=== PATIENT | male | born 1990 | race Caucasian/White ===

== ENCOUNTER 2017-01-06 21:24 | Inpatient (IN) | payer OTHER ==
[~2017-01-06] VITALS: Ht 167.6 cm; Wt 65.0 kg
[2017-01-06 22:00] VITALS: Ht 167.6 cm; Wt 65.0 kg
[2017-01-06 22:20] VITALS: BP 111/78; PULSE 94; RESP 16
[2017-01-06] MEDS ORDERED: BISACODYL (EC) 5 MG TAB PO PRN (23:00)
[2017-01-06] MEDS ORDERED: DOCUSATE SODIUM 100 MG CAP PO PRN (23:00)
[2017-01-06] MEDS ORDERED: ACETAMINOPHEN 325 MG TAB PO PRN (23:00)
[2017-01-06] MEDS ORDERED: ONDANSETRON 4 MG INJ IV PRN (23:00)
[2017-01-06] MEDS ORDERED: NACL 0.9% 3 ML SYG IV SCH (23:00)
[2017-01-06] MEDS: morphine 2 MG INJ IV PRN (23:29)
[2017-01-07 02:00] VITALS: BP 116/62; RESP 20
[2017-01-07] MEDS ORDERED: traZODone 100 MG TAB PO ONE (02:40)
[2017-01-07] MEDS ORDERED: OLANZAPINE 5 MG TAB PO SCH (02:40)
--- NOTE | 2017-01-07 06:17 | HP ---
Date/Time of Note Date/Time of Note DATE: 01/07/17 TIME: 05:55 Assessment/Plan VTE Prophylaxis VTE Prophylaxis Intervention: SCD's Lines/Catheters IV [facility]from [facility] Saline Lock Assessment/Plan Chief Complaint/Hosp Course This is a 26 oh male being admitted to the [facility] floor for: #1 right arm numbness: Possibly underlying demyelinating disease versus other neurological etiology. Motor and sensory deficits noted as well as abnormal focus seen on MRI of the cervical spine. At the current time will order MRI of the brain with and without contrast and MRI of the cervical spine with and without contrast. Will order UMU, ESR, CRP, CBC CMP hemoglobin A1c TSH and lipids. Will consult neurology for further recommendations. Will provide morphine for pain control at this time. #2 Schizophrenia: Continue Zyprexa, trazodone #3 lumbar disc disease: At the current time will hold patient's [place] as he is receiving morphine, continue gabapentin. #4 depression: Stable. #5 asthma: Stable #6 DVT and GI prophylaxis: SCDs, acid prateek Further treatment strategy will be implemented as per the clinical course Problems: HPI/ROS Admit Date/Time Admit Date/Time Jan 06, 2017 at 22:27 Hx of Present Illness Chief complaint: Severe right arm pain This is a 26-year-old male who was transferred from [facility] complaining of severe right arm pain. Patient originally presented to the [facility] complaining of severe right arm pain radiating from the shoulder all the way down to the lateral aspect of the arm to the dorsal hand. He describes it as burning and sharp and it is associated with numbness to the dorsal hand and forearm and down to the second and third finger. He also had weakness in the arm. According to the transfer documentation the patient stated that he initially had this pain for about 10 years however on my examination he states that it just started 3 days ago. Patient reports that he has had back pain for quite some time as he used to lift heavy objects. He goes to pain management and receives Percocet for the pain. Patient also reports that he has a history of migraine headaches. He denies any recent falls or trauma to the right arm or to the head. Patient also notes that he is lumbar spine he has some bulging disks but he has never had any surgeries. Allergies: NKDA Medications: See MAR ROS Const: As per HPI Eyes : No pain discharge or redness or change in visual acuity ENT: No pain, sore throat, congestion, congestion, dysphagia or discharge Respiratory: No shortness of breath, cough, sputum, wheezing, or pleuritic pain Cardiovascular: No chest pain, palpitation, PND, or edema GI : no change in appetite, abdominal pain, nausea, vomiting, diarrhea, constipation, or change in the color his stool Genitourinary: No dysuria, hematuria, flank pain , discharge or CVA tenderness Musculoskeletal: As per HPI Skin: No rash, bruising or hives Neuro: As per HPI Endocrine: No polyuria, polydipsia, temperature intolerance Psych: No hallucination, depression, anxiety or suicidal ideation PMH/Family/Social Past Medical History Depression, schizophrenia, lumbar disc disease, asthma Past Surgical History Past Surgical Hx: no surgical history Family History Significant Family History: other (MS: aunt) Social History Patient denies a history of drinking however on his transfer paperwork he did report that he drank alcohol. Smoking Status: Current every day smoker (1 pack per day 6 years) Drug Use: none Exam/Review of Systems Vital Signs Vitals Vital Signs Date Time Temp Pulse Resp B/P Pulse Ox O2 Delivery O2 Flow Rate FiO2 01/07/17 02:00 98.0 80 20 116/62 96 01/06/17 22:20 Room Air Exam Exam General: This is a pleasant 26-year-old male lying in bed in no acute distress. HEENT: Atraumatic, normocephalic. The pupils are equal, round and reactive. Extraocular motor are intact Neck: Tenderness to palpation at the area of C5-C6 normal range of motion of the neck, Chest: Nontender Lungs: Clear to auscultation bilaterally no crackles rales or wheezing Heart: Normal S1-S2, Regular rhythm and rate. No murmur, S3, or S4 Abdomen: Soft , nontender, nondistended , bowel sounds are present. No guarding no rebound tenderness , No masses or organomegaly. No costovertebral temporal angle mass Extremities: Normal to inspection, no edema no cyanosis Neurologic: Normal mental status, patient is alert and oriented 3. Patient's speech is normal. His cranial nerves II through XII are intact. Patient does have decreased searchlight operator of the bilateral upper extremities. Decreased ankle flexion of the left compared to the right. Intentional tremor with movement. Right upper extremity numbness on the dorsal aspect. Additional Comments MRI of the cervical spine: Done at the transferring facility showed: C3/C4 approximately 4 x 4 x 5 mm central cord rounded focus of abnormal signal is noted in the midportion of the cord posteriorly C4/C5: 1-2 mm retrolisthesis of C4 on C5 is suggested 1 mm broad-based disc bulge is noted: Abnormal central cord signal, approximately 5-6 mm AP 4 mm transverse and 5 mm in cephalo-caudad extension is noted no evidence of significant spinal stenosis or foraminal narrowing is noted. Above appearance could be due to demyelinating plaques of multiple sclerosis. Other additional lab studies were not available in the transfer documentation. Labs Result Diagram: 01/06/17 3862 Medications Medications Current Medications Ondansetron HCl (Zofran Inj) 4 mg Q6H PRN IV NAUSEA AND/OR VOMITING; Start at 23:00 Acetaminophen (Tylenol Tab) 650 mg Q6H PRN PO PAIN LEVEL 1-3 OR FEVER; Start at 23:00 Docusate Sodium (Colace) 100 mg Q12H PRN PO CONSTIPATION; Start 01/06/17 at 23: 00 Bisacodyl (Dulcolax) 5 mg DAILY PRN PO CONSTIPATION; Start 01/06/17 at 23:00 Famotidine (Pepcid) 20 mg Q12 PO ; Start 01/07/17 at 09:00 Morphine Sulfate (morphine) 2 mg Q4H PRN IV PAIN Last administered on t 23:29; Admin Dose 2 MG; Start 01/06/17 at 23:30 Trazodone HCl (Desyrel) 100 mg HS PO ; Start 01/07/17 at 21:00 Olanzapine (Zyprexa) 40 mg QHS PO ; Start 01/07/17 at 21:00 Gabapentin (Neurontin) 800 mg DAILY PO ; Start 01/07/17 at 09:00 Sulindac (Clinoril) 150 mg DAILY PO ; Start 01/07/17 at 09:00 Acetaminophen/ Hydrocodone Bitart ([place] (5/325)) 1 tab TID PO ; Start 01/07/17 at 09:00 PATRICE CAMPBELL Jan 07, 2017 06:07
[2017-01-07 06:21] LABS: BASOPHILS % 0.1 % (0.0-2.0); EOSINOPHILS % 0.1 % (0.0-7.0); HEMATOCRIT 45.7 % (42.0-52.0); HEMOGLOBIN 15.4 g/dl (14.0-18.0); LYMPHOCYTES # 1.2 10^3/ul (0.8-2.9); MEAN CORPUSCULAR HEMOGLOBIN 31.3 pg (29.0-33.0); MEAN CORPUSCULAR HGB CONC 33.7 g/dl (32.0-37.0); MEAN CORPUSCULAR VOLUME 92.9 fl (82.0-101.0); MEAN PLATELET VOLUME 10.5 fl (7.4-10.4); MONOCYTE # 0.6 10^3/ul (0.3-0.9); MONOCYTES % 5.6 % (0.0-11.0); NEUTROPHIL # 8.4 10^3/ul (1.6-7.5); NEUTROPHILS % 81.9 % (39.0-77.0); PLATELET COUNT 187 10^3/UL (140-415); RED BLOOD COUNT 4.92 10^6/ul (4.70-6.10); RED CELL DISTRIBUTION WIDTH 12.2 % (11.5-14.5); WHITE BLOOD COUNT 10.3 10^3/ul (4.8-10.8)
[2017-01-07] MEDS ORDERED: OLAN20TA3 PO (06:27)
[2017-01-07] MEDS ORDERED: [UNRECOGNIZED DRUG - CODE] PO (06:27)
[2017-01-07] MEDS ORDERED: HYDR-906 PO (06:27)
[2017-01-07] MEDS ORDERED: GABA-528 PO (06:27)
[2017-01-07] MEDS ORDERED: TRAZ100T15 PO (06:27)
[2017-01-07 06:35] LABS: INR 0.95; PROTIME 12.7 Sec (12.2-14.2)
[2017-01-07 06:36] LABS: PARTIAL THROMBOPLASTIN TIME 25.8 Sec (25.0-35.0)
[2017-01-07 06:56] LABS: ALBUMIN 3.9 g/dl (3.3-4.9); ALBUMIN/GLOBULIN RATIO 1.3; BILIRUBIN,INDIRECT 0.2 mg/dl (0-1.1); BILIRUBIN,TOTAL 0.2 mg/dl (0.2-1.3); CALCIUM 9.6 mg/dl (8.4-10.2); CHOL/HDL RATIO 4.2 RATIO; MAGNESIUM 1.6 mg/dl (1.7-2.5); POTASSIUM 4.4 mmol/L (3.5-5.1); TOTAL PROTEIN 6.9 g/dl (6.1-8.1)
[2017-01-07 07:19] LABS: THYROID STIMULATING HORMONE 0.42 MIU/L (0.465-4.680)
[2017-01-07 08:00] VITALS: BP 100/64; PULSE 96; RESP 20
[2017-01-07] MEDS: HYDROCODONE/APAP (5/325) TAB PO SCH ×3 (08:23→20:50)
[2017-01-07] MEDS: SULINDAC 150 MG TAB PO SCH (09:29)
[2017-01-07] MEDS: GABAPENTIN 400 MG CAP PO SCH (09:30)
[2017-01-07] MEDS: FAMOTIDINE 20 MG TAB PO SCH ×2 (09:30→20:49)
[2017-01-07] MEDS ORDERED: MAGNESIUM SULFATE 2 GM/50 ML 50 ML IVPB ONE (10:00)
[2017-01-07] MEDS ORDERED: SUMATRIPTAN 25 MG TAB PO PRN (10:30)
--- NOTE | 2017-01-07 12:08 | CONS ---
Date/Time of Note Date/Time of Note DATE: 01/07/17 TIME: 12:01 Assessment/Plan Assessment/Plan Chief Complaint/Hosp Course Right thumb weakness with pain Problems: Additional Assessment/Plan Patient is a 26-year-old male who had history of right arm weakness with pain for about 5 years duration. His also has history of lower back pain and was told to [place] that he likely had sciatica. He initially presented to [facility] and was evaluated and was transferred to [facility] for further management. Also had history of schizophrenia and depression and has seen a pain specialist in the back for his lower back pain problem. He was reporting weakness in right arm and pain worsening in the last face. MRI of the cervical spine showed at C3-4 approximately 445 mm central cord lesion , see 4 5 symmetrically 5-6 mm cord lesion otherwise unremarkable. My impression is that he has multiple sclerosis. Plan 1 MRI of the brain with and without contrast include sagittal FLAIR images 2 MRI of the cervical spine with contrast 3 MRI of the thoracic spine with contrast 4 he may need a lumbar puncture for confirmation and CSF will be sent for MS panel and routine 5 he may need a treatment with IV Solu-Medrol 6 Dr. Lynn will follow in a.m. Consultation Date/Type/Reason Admit Date/Time Jan 06, 2017 at 22:27 Date of Consultation: Jan 07, 2017 Type of Consultation: Neurology Reason for Consultation Right eye weakness with pain Referring Provider: PATRICE CAMPBELL Hx of Present Illness Patient is a 26-year-old male who had history of right arm weakness with pain for about 5 years duration. His also has history of lower back pain and was told to him in [place] that he likely had sciatica. He initially presented to [facility] and was evaluated and was transferred to [facility] for further management. Also had history of schizophrenia and depression and has seen a pain specialist in the back for his lower back pain problem. He was reporting weakness in right arm and pain worsening in the last face. MRI of the cervical spine showed at C3-4 approximately 445 mm central cord lesion , see 4 5 symmetrically 5-6 mm cord lesion otherwise unremarkable. Constitutional: no complaints Eyes: no complaints ENT: no complaints Respiratory: no complaints Cardiovascular: no complaints Gastrointestinal: no complaints Genitourinary: no complaints Musculoskeletal: no complaints Skin: no complaints Neurologic: focal-weakness Endocrine: no complaints Lymphatic: no complaints Psychological: nl mood/affect, no complaints Immunologic: no complaints Past Surgical History Past Surgical Hx: no surgical history Family History Significant Family History: other (His uncle has multiple sclerosis) Social History Smoking Status: Current every day smoker (1 pack per day 6 years) Drug Use: none Exam/Review of Systems Vital Signs Vitals Vital Signs Date Time Temp Pulse Resp B/P Pulse Ox O2 Delivery O2 Flow Rate FiO2 01/07/17 08:00 97.9 96 20 100/64 96 Room Air Exam Constitutional: alert, oriented, well developed Psych: nl mood/affect, no complaints Head: atraumatic, normocephalic Eyes: EOMI, nl conjunctiva, nl lids ENMT: nl external ears & nose, nl lips & teeth, nl nasal mucosa & septum Neck: non-tender, supple Respiratory: clear to auscultation, normal air movement Cardiovascular: nl pulses, regular rate and rhythm Gastrointestinal: nl liver, spleen, non-tender, soft Musculoskeletal: nl extremities to inspection Extremities: normal pulses Neurological: RING FACER II-XII intact, nl mental status, nl speech, other (Mild right upper and right lower extremity weakness, double reflexes) Skin: nl turgor, rash or lesions Lymph: nl lymph nodes Results Result Diagram: 01/07/17 0547 01/07/17 0547 Results 24 hrs Laboratory Tests Test 01/06/17 23:17 01/07/17 05:47 01/07/17 07:42 Platelet Count 194 187 White Blood Count 10.3 Red Blood Count 4.92 Hemoglobin 15.4 Hematocrit 45.7 Mean Corpuscular Volume 92.9 Mean Corpuscular Hemoglobin 31.3 Mean Corpuscular Hemoglobin Concent 33.7 Red Cell Distribution Width 12.2 Mean Platelet Volume 10.5 H Neutrophils % 81.9 H Lymphocytes % 12.0 L Monocytes % 5.6 Eosinophils % 0.1 Basophils % 0.1 Nucleated Red Blood Cells % 0.0 Neutrophils # 8.4 H Lymphocytes # 1.2 Monocytes # 0.6 Eosinophils # 0.0 Basophils # 0.0 Nucleated Red Blood Cells # 0.0 Prothrombin Time 12.7 Prothrombin Time Ratio 1.0 INR International Normalized Ratio 0.95 Activated Partial Thromboplast Time 25.8 Sodium Level 140 Potassium Level 4.4 Chloride Level 106 Carbon Dioxide Level 29 Anion Gap 9 Blood Urea Nitrogen 18 Creatinine 1.00 Glucose Level 127 Hemoglobin A1c 4.7 Calcium Level 9.6 Magnesium Level 1.6 L Total Bilirubin 0.2 Direct Bilirubin 0.00 Indirect Bilirubin 0.2 Aspartate Amino Transf (AST/SGOT) 20 Alanine Aminotransferase (ALT/SGPT) 29 Alkaline Phosphatase 86 Total Protein 6.9 Albumin 3.9 Globulin 3.00 Albumin/Globulin Ratio 1.30 Triglycerides Level 89 Cholesterol Level 194 LDL Cholesterol, Calculated 130 HDL Cholesterol 46 Cholesterol/HDL Ratio 4.2 Thyroid Stimulating Hormone (TSH) 0.420 L Erythrocyte Sedimentation Rate 2 C-Reactive Protein 0.6 Medications Medications Current Medications Ondansetron HCl (Zofran Inj) 4 mg Q6H PRN IV NAUSEA AND/OR VOMITING; Start at 23:00 Acetaminophen (Tylenol Tab) 650 mg Q6H PRN PO PAIN LEVEL 1-3 OR FEVER; Start at 23:00 Docusate Sodium (Colace) 100 mg Q12H PRN PO CONSTIPATION; Start 01/06/17 at 23: 00 Bisacodyl (Dulcolax) 5 mg DAILY PRN PO CONSTIPATION; Start 01/06/17 at 23:00 Famotidine (Pepcid) 20 mg Q12 PO Last administered on 01/07/17 09:30; Admin Dose 20 MG; Start 01/07/17 at 09:00 Morphine Sulfate (morphine) 2 mg Q4H PRN IV PAIN Last administered on 23:29; Admin Dose 2 MG; Start 01/06/17 at 23:30 Trazodone HCl (Desyrel) 100 mg HS PO ; Start 01/07/17 at 21:00 Olanzapine (Zyprexa) 40 mg QHS PO ; Start 01/07/17 at 21:00 Gabapentin (Neurontin) 800 mg DAILY PO Last administered on 01/07/17 09:30; Admin Dose 800 MG; Start 01/07/17 at 09:00 Sulindac (Clinoril) 150 mg DAILY PO Last administered on 01/07/17 09:29; Admin Dose 150 MG; Start 01/07/17 at 09:00 Acetaminophen/ Hydrocodone Bitart ([place] (5/325)) 1 tab TID PO Last administered on 01/07/17 08:23; Admin Dose 1 TAB; Start 01/07/17 at 09:00 Sumatriptan Succinate (Imitrex) 25 mg Q4H PRN PO HEADACHE; Start 01/07/17 at 10 :30 Baclofen (Lioresal) 10 mg TID PO ; Start 01/07/17 at 13:00 ADRIAN RUBI MD Jan 07, 2017 12:08
[2017-01-07] MEDS: BACLOFEN 10 MG TAB PO SCH ×2 (13:50→20:50)
--- NOTE | 2017-01-07 16:44 | RADRPT ---
PROCEDURE: MR Brain with and without intravenous contrast CLINICAL INDICATION: Right arm weakness and lower extremity weakness. COMPARISON: None relevant listed. TECHNIQUE: Multiplanar multi-sequence images of the brain were obtained before and after the unevent ful administration of 10 mL Magnevist intravenous contrast. Images acquired on a 3.0 Rubi magnet. FINDINGS: Parenchyma: No acute hemorrhage, infarction, mass, or abnormal enhancement. Mild amount of periventr icular white matter FLAIR hyperintensity which appears predominantly oval in shape. No corpus callos al volume loss. No white matter lesions within the cerebellum or brainstem. Ventricles: No ventricular enlargement or ventricular effacement. No cerebral or cerebellar volume l oss. Extra-axial spaces: No herniation or midline shift. Orbits: Normal. Major intracranial flow voids: Preserved. Paranasal sinuses: Mild paranasal sinus mucosal thickening. Tiny mucous retention cyst or polyp in t he left maxillary sinus. Mastoids and middle ears: Clear. Bones: Normal. Extracranial soft tissues: Normal. Additional comment: None. IMPRESSION: Mild amount of periventricular white matter signal changes. Given lesions identified in the cervical and thoracic spine (see separate dictated report), imaging findings are suggestive of a demyelinat ing process such as multiple sclerosis. No enhancement identified to suggest active inflammation. RPTAT: PP Physician Merry Date Time Electronically viewed and signed by Physician Merry on 01/07/2017 16:43 /
--- NOTE | 2017-01-07 16:59 | RADRPT ---
PROCEDURE: MR Cervical Spine with intravenous contrast CLINICAL INDICATION: Right-sided arm and leg weakness. COMPARISON: Concurrent MRI of the brain and thoracic spine. TECHNIQUE: Multiplanar multi-sequence MRI of the cervical spine before and after the uneventful adm inistration of 10 mL Magnevist intravenous contrast. Images acquired on a 3.0 Rubi magnet. FINDINGS: Alignment: Normal. Vertebral bodies: No acute fracture, vertebral height loss, or suspicious bony lesion. Bone marrow: Normal. Discs: Normal signal and height. Spinal cord: Multiple lesions with increased T2 signal in the spinal cord, including mid C3 (series 4, image 7), lower C4 and upper C5 (series 6, image 17), and C7-T1 (series 3, image 7). Degenerative change: C2-C3 : No disc herniation. No central canal or foraminal narrowing. C3-C4 : No disc herniation. No central canal or foraminal narrowing. C4-C5 : No disc herniation. No central canal or foraminal narrowing. C5-C6 : No disc herniation. No central canal or foraminal narrowing. C6-C7 : No disc herniation. No central canal or foraminal narrowing. C7-T1 : No disc herniation. No central canal or foraminal narrowing. Paravertebral soft tissues: Normal. Visualized brain: Normal. Visualized neck and lungs: Normal. Additional comment: None. IMPRESSION: Multiple lesions within the cervical cord consistent with a demyelinating process such as multiple s clerosis. No associated enhancement to suggest active inflammation. RPTAT: PP Physician Merry Date Time Electronically viewed and signed by Physician Merry on 01/07/2017 16:58 /
--- NOTE | 2017-01-07 17:06 | RADRPT ---
PROCEDURE: MR Thoracic Spine with and without contrast CLINICAL INDICATION: Right upper and lower extremity weakness. COMPARISON: MRI of the brain and cervical spine from 01/07/2017. TECHNIQUE: Multiplanar multi-sequence images of the thoracic spine before and after the uneventful administration of 10 mL Magnevist intravenous contrast. Images acquired on a 3.0 Rubi magnet. FINDINGS: Alignment: Normal. Vertebral bodies: No acute fracture or vertebral body height loss. V12 vertebral body hemangioma. Bone marrow: Normal. Discs: Normal height and signal. Spinal cord: Increased signal within the T7-T8 spinal cord (series 7, image 22 - 27), T9 (series 7, image 32), T10 (series 7, image 38), and possibly T12 (series 7, image 46). No clear enhancement to suggest active inflammation. Degenerative change: None. Paraspinal musculature: Normal. Visualized chest and abdomen: Normal. Additional comment: None. IMPRESSION: Multiple spinal cord lesions in a pattern suggesting a demyelinating process such as multiple sclero sis. No enhancement identified to suggest active inflammation. RPTAT: PP Physician Merry Date Time Electronically viewed and signed by Physician Merry on 01/07/2017 17:06 /
--- NOTE | 2017-01-07 17:29 | PN ---
Date/Time of Note Date/Time of Note DATE: 01/07/17 TIME: 17:14 Assessment/Plan VTE Prophylaxis VTE Prophylaxis Intervention: ambulation Lines/Catheters IV Catheter Type (from Nrs): Saline Lock Assessment/Plan Assessment/Plan 1. right arm weakness, possibly MS - Patient states has family member who has MS and concerned may be reason for his symptoms - Neurology on board and recommendations appreciated. believes patient may have MS and will need LP most likely for confirmation - MRI of the cervical spine showed at C3-4 approximately 445 mm central cord lesion, see 4 5 symmetrically 5-6 mm cord lesion otherwise unremarkable. - MRI brain shows Mild amount of periventricular white matter signal changes. Given lesions identified in the cervical and thoracic spine (see separate dictated report), imaging findings are suggestive of a demyelinating process such as multiple sclerosis. No enhancement identified to suggest active inflammation. - Will start on IV methylprednisolone x3 doses and await further recommendations from neurology - patient also experiencing muscle spasms after lifting heavy bags of up to 100lbs. Will try on Baclofen for relief 2. Viral symptoms - will check influenza and RSV - supportive care 3. Schizophrenia - Continue Zyprexa and Trazodone - currently stable but if hallucinations worsen, will need telepsych 4. lumbar disc disease - Gabapentin 5. depression - stable 6. Asthma - Stable Subjective 24 Hr Interval Summary Free Text/Dictation Patient still c/o right arm pain and weakness for the past few days. Also complaining of right leg weakness for the past 6 years. Patient was experiencing flight of ideas and requesting treatment for various issues. He mentioned having viral symptoms for the past 10-12 days as well as headaches. Requesting sumatriptan for relief. Patient also states he hears voices but denies any suicidal or homicidal ideations. Exam/Review of Systems Vital Signs Vitals Vital Signs Date Time Temp Pulse Resp B/P Pulse Ox O2 Delivery O2 Flow Rate FiO2 01/07/17 08:00 97.9 96 20 100/64 96 Room Air Exam General: NAD, pleasant young man, flight of ideas CVS: regular rate and rhythm. no murmurs Lungs: CTA b/l. no wheezes or rhonchi Abd: soft NT, ND + BS, no rebound or guarding Ext: moving all extremities. no cyanosis, edema, or clubbing Neuro: CN 2-12 intact. 4/5 weakness RUE and RLE. 5/5 LUE and LLE. no focal deficits Psych: flight of ideas, admits to auditory hallucinations. denies SI/HI Results Result Diagram: 01/07/17 0547 01/07/17 0547 Results 24 hrs Laboratory Tests Test 01/06/17 23:17 01/07/17 05:47 01/07/17 07:42 Platelet Count 194 187 White Blood Count 10.3 Red Blood Count 4.92 Hemoglobin 15.4 Hematocrit 45.7 Mean Corpuscular Volume 92.9 Mean Corpuscular Hemoglobin 31.3 Mean Corpuscular Hemoglobin Concent 33.7 Red Cell Distribution Width 12.2 Mean Platelet Volume 10.5 H Neutrophils % 81.9 H Lymphocytes % 12.0 L Monocytes % 5.6 Eosinophils % 0.1 Basophils % 0.1 Nucleated Red Blood Cells % 0.0 Neutrophils # 8.4 H Lymphocytes # 1.2 Monocytes # 0.6 Eosinophils # 0.0 Basophils # 0.0 Nucleated Red Blood Cells # 0.0 Prothrombin Time 12.7 Prothrombin Time Ratio 1.0 INR International Normalized Ratio 0.95 Activated Partial Thromboplast Time 25.8 Sodium Level 140 Potassium Level 4.4 Chloride Level 106 Carbon Dioxide Level 29 Anion Gap 9 Blood Urea Nitrogen 18 Creatinine 1.00 Glucose Level 127 Hemoglobin A1c 4.7 Calcium Level 9.6 Magnesium Level 1.6 L Total Bilirubin 0.2 Direct Bilirubin 0.00 Indirect Bilirubin 0.2 Aspartate Amino Transf (AST/SGOT) 20 Alanine Aminotransferase (ALT/SGPT) 29 Alkaline Phosphatase 86 Total Protein 6.9 Albumin 3.9 Globulin 3.00 Albumin/Globulin Ratio 1.30 Triglycerides Level 89 Cholesterol Level 194 LDL Cholesterol, Calculated 130 HDL Cholesterol 46 Cholesterol/HDL Ratio 4.2 Thyroid Stimulating Hormone (TSH) 0.420 L Erythrocyte Sedimentation Rate 2 C-Reactive Protein 0.6 Medications Medications Current Medications Ondansetron HCl (Zofran Inj) 4 mg Q6H PRN IV NAUSEA AND/OR VOMITING; Start at 23:00 Acetaminophen (Tylenol Tab) 650 mg Q6H PRN PO PAIN LEVEL 1-3 OR FEVER; Start at 23:00 Docusate Sodium (Colace) 100 mg Q12H PRN PO CONSTIPATION; Start 01/06/17 at 23: 00 Bisacodyl (Dulcolax) 5 mg DAILY PRN PO CONSTIPATION; Start 01/06/17 at 23:00 Famotidine (Pepcid) 20 mg Q12 PO Last administered on 01/07/17 09:30; Admin Dose 20 MG; Start 01/07/17 at 09:00 Morphine Sulfate (morphine) 2 mg Q4H PRN IV PAIN Last administered on 23:29; Admin Dose 2 MG; Start 01/06/17 at 23:30 Trazodone HCl (Desyrel) 100 mg HS PO ; Start 01/07/17 at 21:00 Olanzapine (Zyprexa) 40 mg QHS PO ; Start 01/07/17 at 21:00 Gabapentin (Neurontin) 800 mg DAILY PO Last administered on 01/07/17 09:30; Admin Dose 800 MG; Start 01/07/17 at 09:00 Sulindac (Clinoril) 150 mg DAILY PO Last administered on 01/07/17 09:29; Admin Dose 150 MG; Start 01/07/17 at 09:00 Acetaminophen/ Hydrocodone Bitart ([place] (5/325)) 1 tab TID PO Last administered on 01/07/17 13:50; Admin Dose 1 TAB; Start 01/07/17 at 09:00 Sumatriptan Succinate (Imitrex) 25 mg Q4H PRN PO HEADACHE; Start 01/07/17 at 10 :30 Baclofen (Lioresal) 10 mg TID PO Last administered on 01/07/17 13:50; Admin Dose 10 MG; Start 01/07/17 at 13:00 FILIPPO BALBUENA MD Jan 07, 2017 17:29
[2017-01-07 20:00] VITALS: BP 114/58; RESP 18
[2017-01-07] MEDS: traZODone 100 MG TAB PO SCH (20:48)
[2017-01-07] MEDS: OLANZAPINE 5 MG TAB PO SCH (20:49)
[2017-01-08 02:14] VITALS: BP 108/61; RESP 18
[2017-01-08] MEDS ORDERED: GUAIFENESIN/DM 5ML CUP PO PRN (02:30)
[2017-01-08 05:55] LABS: BASOPHILS % 0.4 % (0.0-2.0); EOSINOPHILS # 0.1 10^3/ul (0.0-0.5); EOSINOPHILS % 0.8 % (0.0-7.0); HEMATOCRIT 46.7 % (42.0-52.0); HEMOGLOBIN 15.3 g/dl (14.0-18.0); LYMPHOCYTES % 36.1 % (15.0-51.0); MEAN CORPUSCULAR HGB CONC 32.8 g/dl (32.0-37.0); MEAN CORPUSCULAR VOLUME 94.5 fl (82.0-101.0); MONOCYTE # 0.5 10^3/ul (0.3-0.9); MONOCYTES % 6.4 % (0.0-11.0); NEUTROPHIL # 4.7 10^3/ul (1.6-7.5); NEUTROPHILS % 56.1 % (39.0-77.0); PLATELET COUNT 179 10^3/UL (140-415); RED BLOOD COUNT 4.94 10^6/ul (4.70-6.10); RED CELL DISTRIBUTION WIDTH 12.3 % (11.5-14.5); WHITE BLOOD COUNT 8.4 10^3/ul (4.8-10.8)
[2017-01-08 06:39] LABS: CALCIUM 9.2 mg/dl (8.4-10.2); CREATININE 1.08 mg/dl (0.61-1.24); MAGNESIUM 1.7 mg/dl (1.7-2.5); PHOSPHORUS 4.8 mg/dl (2.5-4.9); POTASSIUM 4.3 mmol/L (3.5-5.1)
[2017-01-08 07:47] VITALS: BP 103/58; RESP 18
[2017-01-08] MEDS: BACLOFEN 10 MG TAB PO SCH ×3 (08:57→21:07)
[2017-01-08] MEDS: HYDROCODONE/APAP (5/325) TAB PO SCH ×3 (08:57→21:08)
[2017-01-08] MEDS: GABAPENTIN 400 MG CAP PO SCH (08:57)
[2017-01-08] MEDS: FAMOTIDINE 20 MG TAB PO SCH ×2 (08:58→21:08)
[2017-01-08] MEDS: SULINDAC 150 MG TAB PO SCH (08:58)
[2017-01-08] MEDS: METHYLPRED. NA SUCC 1,000 MG in DEXTROSE 5% 50 ML IVPB SCH (08:58)
--- NOTE | 2017-01-08 14:35 | RADRPT ---
PROCEDURE: Right knee radiographs. CLINICAL INDICATION: Right knee palpable lesion. TECHNIQUE: Three views. Weight bearing. Frontal, lateral, and oblique. COMPARISON: No prior studies are available for comparison. FINDINGS: There is no fracture or dislocation. The soft tissues are normal. The articular surfaces are intact. There is no lytic or blastic lesion. There is a bony exostosis consistent with an osteochondroma monica sing from the distal medial aspect of the femur measuring approximately 0.8 x 0.9 cm. There is no radiopaque foreign body. IMPRESSION: 1. Osteochondroma arising from the distal medial aspect of the femur. 2. Otherwise unremarkable study. RPTAT: QQ .Vu Felder MD, Date Time Electronically viewed and signed by .Vu Felder MD, on 01/08/2017 14:35 .R/
--- NOTE | 2017-01-08 14:48 | PN ---
Date/Time of Note Date/Time of Note DATE: 01/08/17 TIME: 14:42 Assessment/Plan VTE Prophylaxis VTE Prophylaxis Intervention: ambulation Lines/Catheters IV Catheter Type (from [facility]): Saline Lock Assessment/Plan Chief Complaint/Hosp Course 1. right arm weakness, possibly MS - Patient states has family member who has MS and concerned may be reason for his symptoms - Neurology on board and recommendations appreciated. believes patient may have MS and will need LP most likely for confirmation - MRI of the cervical spine showed at C3-4 approximately 445 mm central cord lesion, see 4 5 symmetrically 5-6 mm cord lesion otherwise unremarkable. - MRI brain shows Mild amount of periventricular white matter signal changes. Given lesions identified in the cervical and thoracic spine (see separate dictated report), imaging findings are suggestive of a demyelinating process such as multiple sclerosis. No enhancement identified to suggest active inflammation. - Will continue IV methylprednisolone x3 doses total and await further recommendations from neurology - patient also experiencing muscle spasms after lifting heavy bags of up to 100lbs. Will try on Baclofen for relief 2. Viral symptoms - supportive care 3. Schizophrenia - Continue Zyprexa and Trazodone - currently stable 4. lumbar disc disease - Gabapentin 5. depression - stable 6. Asthma - Stable R distal femur osteochondroma -appeared 11 years ago, no pain or symptoms. recommend outpatient ortho follow up with yearly xray. Problems: Subjective 24 Hr Interval Summary Free Text/Dictation no acute issues. concerned about bony growth on right leg for 11 years Exam/Review of Systems Vital Signs Vitals Vital Signs Date Time Temp Pulse Resp B/P Pulse Ox O2 Delivery O2 Flow Rate FiO2 01/08/17 07:47 98.6 73 18 103/58 97 01/07/17 08:00 Room Air Intake and Output 01/07/17 01/07/17 01/08/17 15:00 23:00 07:00 Intake Total 50 ml 2000 ml 300 ml Balance 50 ml 2000 ml 300 ml Exam General: NAD, resting comfortably CVS: regular rate and rhythm. no murmurs Lungs: CTA b/l. no wheezes or rhonchi Abd: soft NT, ND + BS, no rebound or guarding Ext: moving all extremities. no cyanosis, edema, or clubbing Neuro: CN 2-12 intact. 4/5 weakness RUE and RLE. 5/5 LUE and LLE. no focal deficits Psych: a and o x 3 Results Result Diagram: 01/08/17 0504 01/08/17 0504 Results 24 hrs Laboratory Tests Test 01/08/17 05:04 White Blood Count 8.4 Red Blood Count 4.94 Hemoglobin 15.3 Hematocrit 46.7 Mean Corpuscular Volume 94.5 Mean Corpuscular Hemoglobin 31.0 Mean Corpuscular Hemoglobin Concent 32.8 Red Cell Distribution Width 12.3 Platelet Count 179 Mean Platelet Volume 11.0 H Neutrophils % 56.1 Lymphocytes % 36.1 Monocytes % 6.4 Eosinophils % 0.8 Basophils % 0.4 Nucleated Red Blood Cells % 0.0 Neutrophils # 4.7 Lymphocytes # 3.0 H Monocytes # 0.5 Eosinophils # 0.1 Basophils # 0.0 Nucleated Red Blood Cells # 0.0 Sodium Level 143 Potassium Level 4.3 Chloride Level 109 Carbon Dioxide Level 27 Anion Gap 11 Blood Urea Nitrogen 15 Creatinine 1.08 Glucose Level 88 Calcium Level 9.2 Phosphorus Level 4.8 Magnesium Level 1.7 Albumin 4.0 Medications Medications Current Medications Ondansetron HCl (Zofran Inj) 4 mg Q6H PRN IV NAUSEA AND/OR VOMITING; Start at 23:00 Acetaminophen (Tylenol Tab) 650 mg Q6H PRN PO PAIN LEVEL 1-3 OR FEVER; Start at 23:00 Docusate Sodium (Colace) 100 mg Q12H PRN PO CONSTIPATION; Start 01/06/17 at 23: 00 Bisacodyl (Dulcolax) 5 mg DAILY PRN PO CONSTIPATION; Start 01/06/17 at 23:00 Famotidine (Pepcid) 20 mg Q12 PO Last administered on 01/08/17 08:58; Admin Dose 20 MG; Start 01/07/17 at 09:00 Morphine Sulfate (morphine) 2 mg Q4H PRN IV PAIN Last administered on 23:29; Admin Dose 2 MG; Start 01/06/17 at 23:30 Trazodone HCl (Desyrel) 100 mg HS PO Last administered on 01/07/17 20:48; Admin Dose 100 MG; Start 01/07/17 at 21:00 Olanzapine (Zyprexa) 40 mg QHS PO Last administered on 01/07/17 20:49; Admin Dose 40 MG; Start 01/07/17 at 21:00 Gabapentin (Neurontin) 800 mg DAILY PO Last administered on 01/08/17 08:57; Admin Dose 800 MG; Start 01/07/17 at 09:00 Sulindac (Clinoril) 150 mg DAILY PO Last administered on 01/08/17 08:58; Admin Dose 150 MG; Start 01/07/17 at 09:00 Acetaminophen/ Hydrocodone Bitart ([place] (5/325)) 1 tab TID PO Last administered on 01/08/17 12:28; Admin Dose 1 TAB; Start 01/07/17 at 09:00 Sumatriptan Succinate (Imitrex) 25 mg Q4H PRN PO HEADACHE; Start 01/07/17 at 10 :30 Baclofen 10 mg 10 mg TID PO Last administered on 01/08/17 12:28; Admin Dose 10 MG; Start 01/07/17 at 13:00 Methylprednisolone Sodium Succinate/ Dextrose (Solu-Medrol/D5W) 50 ml @ 100 mls /hr DAILY IVPB Last administered on 01/08/17 08:58; Admin Dose 100 MLS/HR; Start 01/08/17 at 09:00; Stop 01/10/17 at 09:29 Guaifenesin/ Dextromethorphan (Robitussin Dm Liquid Cup) 5 ml Q6 PRN PO FOR COUGHING Last administered on 01/08/17 12:32; Admin Dose 5 ML; Start 01/08/17 at 02:30 GUANAKITO HUTTON Jan 08, 2017 14:48
[2017-01-08 15:05] VITALS: BP 107/59; RESP 18
[2017-01-08] MEDS: morphine 2 MG INJ IV PRN (16:05)
--- NOTE | 2017-01-08 16:37 | CONS ---
Date/Time of Note Date/Time of Note DATE: 01/08/17 TIME: 16:32 Consult Date/Type/Reason Admit Date/Time Jan 06, 2017 at 22:27 Initial Consult Date 01/07/17 Type of Consultation: Neurology Reason for Consultation LE weakness Ordering Provider: PATRICE CAMPBELL Subjective still r/o numbness weakness mostly right arm and leg right leg weakness urinary incontinence Objective Vital Signs Date Time Temp Pulse Resp B/P Pulse Ox O2 Delivery O2 Flow Rate FiO2 01/08/17 15:05 98.6 73 18 107/59 97 01/07/17 08:00 Room Air Intake and Output 01/07/17 01/07/17 01/08/17 15:00 23:00 07:00 Intake Total 50 ml 2000 ml 300 ml Balance 50 ml 2000 ml 300 ml Exam Constitutional: alert, oriented, well developed Psych: nl mood/affect, no complaints Head: atraumatic, normocephalic Eyes: EOMI, nl conjunctiva, nl lids ENMT: nl external ears & nose, nl lips & teeth, nl nasal mucosa & septum Neck: non-tender, supple Respiratory: clear to auscultation, normal air movement Cardiovascular: nl pulses, regular rate and rhythm Gastrointestinal: nl liver, spleen, non-tender, soft Musculoskeletal: nl extremities to inspection Extremities: normal pulses Neurological: [employer] II-XII intact, nl mental status, nl speech, other (Mild right upper and right lower extremity weakness, hyperreflexia with cross over Skin: nl turgor, rash or lesions Lymph: nl lymph nodes Results/Medications Result Diagram: 01/08/17 0504 01/08/17 0504 Results 24 hrs Laboratory Tests Test 01/08/17 05:04 White Blood Count 8.4 Red Blood Count 4.94 Hemoglobin 15.3 Hematocrit 46.7 Mean Corpuscular Volume 94.5 Mean Corpuscular Hemoglobin 31.0 Mean Corpuscular Hemoglobin Concent 32.8 Red Cell Distribution Width 12.3 Platelet Count 179 Mean Platelet Volume 11.0 H Neutrophils % 56.1 Lymphocytes % 36.1 Monocytes % 6.4 Eosinophils % 0.8 Basophils % 0.4 Nucleated Red Blood Cells % 0.0 Neutrophils # 4.7 Lymphocytes # 3.0 H Monocytes # 0.5 Eosinophils # 0.1 Basophils # 0.0 Nucleated Red Blood Cells # 0.0 Sodium Level 143 Potassium Level 4.3 Chloride Level 109 Carbon Dioxide Level 27 Anion Gap 11 Blood Urea Nitrogen 15 Creatinine 1.08 Glucose Level 88 Calcium Level 9.2 Phosphorus Level 4.8 Magnesium Level 1.7 Albumin 4.0 Medications Current Medications Ondansetron HCl (Zofran Inj) 4 mg Q6H PRN IV NAUSEA AND/OR VOMITING; Start at 23:00 Acetaminophen (Tylenol Tab) 650 mg Q6H PRN PO PAIN LEVEL 1-3 OR FEVER; Start at 23:00 Docusate Sodium (Colace) 100 mg Q12H PRN PO CONSTIPATION; Start 01/06/17 at 23: 00 Bisacodyl (Dulcolax) 5 mg DAILY PRN PO CONSTIPATION; Start 01/06/17 at 23:00 Famotidine (Pepcid) 20 mg Q12 PO Last administered on 01/08/17 08:58; Admin Dose 20 MG; Start 01/07/17 at 09:00 Morphine Sulfate (morphine) 2 mg Q4H PRN IV PAIN Last administered on 16:05; Admin Dose 2 MG; Start 01/06/17 at 23:30 Trazodone HCl (Desyrel) 100 mg HS PO Last administered on 01/07/17 20:48; Admin Dose 100 MG; Start 01/07/17 at 21:00 Olanzapine (Zyprexa) 40 mg QHS PO Last administered on 01/07/17 20:49; Admin Dose 40 MG; Start 01/07/17 at 21:00 Gabapentin (Neurontin) 800 mg DAILY PO Last administered on 01/08/17 08:57; Admin Dose 800 MG; Start 01/07/17 at 09:00 Sulindac (Clinoril) 150 mg DAILY PO Last administered on 01/08/17 08:58; Admin Dose 150 MG; Start 01/07/17 at 09:00 Acetaminophen/ Hydrocodone Bitart ([place] (5/325)) 1 tab TID PO Last administered on 01/08/17 12:28; Admin Dose 1 TAB; Start 01/07/17 at 09:00 Sumatriptan Succinate (Imitrex) 25 mg Q4H PRN PO HEADACHE; Start 01/07/17 at 10 :30 Baclofen 10 mg 10 mg TID PO Last administered on 01/08/17 12:28; Admin Dose 10 MG; Start 01/07/17 at 13:00 Methylprednisolone Sodium Succinate/ Dextrose (Solu-Medrol/D5W) 50 ml @ 100 mls /hr DAILY IVPB Last administered on 01/08/17 08:58; Admin Dose 100 MLS/HR; Start 01/08/17 at 09:00; Stop 01/10/17 at 09:29 Guaifenesin/ Dextromethorphan (Robitussin Dm Liquid Cup) 5 ml Q6 PRN PO FOR COUGHING Last administered on 01/08/17 12:32; Admin Dose 5 ML; Start 01/08/17 at 02:30 Assessment/Plan Chief Complaint/Hosp Course 26-year-old male who had history of right arm weakness with pain for about 5 years duration. His also has history of lower back pain and was told to [place] that he likely had sciatica. He initially presented to [facility] and was evaluated and was transferred to [facility] for further management. Also had history of schizophrenia and depression and has seen a pain specialist in the back for his lower back pain problem. He was reporting weakness in right arm and pain worsening in the last face. MRI of the cervical spine showed at C3-4 approximately 445 mm central cord lesion, see 4 5 symmetrically 5-6 mm cord lesion otherwise unremarkable. MRI Brain shows numerous white matter periventricular lesions. Mild amount of periventricular white matter signal changes. Given lesions identified in the cervical and thoracic spine (see separate dictated report), imaging findings are suggestive of a demyelinating process such as multiple sclerosis. No enhancement identified to suggest active inflammation. Recommendations: likely MS LP studies ordered IgG index also added Aquaporin-4 Ab for NMO bladder scan continue Solumedrol 3 days will follow PT/OT Problems: FAWN RAE MD Jan 08, 2017 16:37
[2017-01-08 20:00] VITALS: BP 118/73; RESP 18
[2017-01-08] MEDS: OLANZAPINE 5 MG TAB PO SCH (21:06)
[2017-01-08] MEDS: traZODone 100 MG TAB PO SCH (21:07)
[2017-01-09 02:00] VITALS: BP 100/54; RESP 18
[2017-01-09 05:29] LABS: BASOPHILS % 0.1 % (0.0-2.0); HEMATOCRIT 44.7 % (42.0-52.0); HEMOGLOBIN 15.3 g/dl (14.0-18.0); LYMPHOCYTES # 1.4 10^3/ul (0.8-2.9); LYMPHOCYTES % 9.1 % (15.0-51.0); MEAN CORPUSCULAR HEMOGLOBIN 31.6 pg (29.0-33.0); MEAN CORPUSCULAR HGB CONC 34.2 g/dl (32.0-37.0); MEAN CORPUSCULAR VOLUME 92.4 fl (82.0-101.0); MEAN PLATELET VOLUME 10.4 fl (7.4-10.4); MONOCYTE # 0.8 10^3/ul (0.3-0.9); MONOCYTES % 5.1 % (0.0-11.0); NEUTROPHIL # 12.9 10^3/ul (1.6-7.5); NEUTROPHILS % 84.9 % (39.0-77.0); PLATELET COUNT 195 10^3/UL (140-415); RED BLOOD COUNT 4.84 10^6/ul (4.70-6.10); RED CELL DISTRIBUTION WIDTH 11.6 % (11.5-14.5); WHITE BLOOD COUNT 15.2 10^3/ul (4.8-10.8)
[2017-01-09 06:39] LABS: CALCIUM 9.4 mg/dl (8.4-10.2); CREATININE 0.85 mg/dl (0.61-1.24); MAGNESIUM 1.8 mg/dl (1.7-2.5); PHOSPHORUS 4.6 mg/dl (2.5-4.9); POTASSIUM 4.3 mmol/L (3.5-5.1)
[2017-01-09 07:52] VITALS: BP 98/57; RESP 15
[2017-01-09] MEDS: BACLOFEN 10 MG TAB PO SCH ×3 (08:45→20:22)
[2017-01-09] MEDS: SULINDAC 150 MG TAB PO SCH (08:46)
[2017-01-09] MEDS: HYDROCODONE/APAP (5/325) TAB PO SCH ×3 (08:46→20:22)
[2017-01-09] MEDS: GABAPENTIN 400 MG CAP PO SCH (08:46)
[2017-01-09] MEDS: FAMOTIDINE 20 MG TAB PO SCH ×2 (08:47→20:22)
[2017-01-09] MEDS: METHYLPRED. NA SUCC 1,000 MG in DEXTROSE 5% 50 ML IVPB SCH (08:52)
--- NOTE | 2017-01-09 11:46 | CONS ---
Date/Time of Note Date/Time of Note DATE: 01/09/17 TIME: 11:45 Consult Date/Type/Reason Admit Date/Time Jan 06, 2017 at 22:27 Initial Consult Date 01/07/17 Type of Consultation: Neurology Reason for Consultation MS Ordering Provider: PATRICE CAMPBELL Subjective pending LP right sided weakness improved still has some pain in right shoulder ambulation improved Objective Vital Signs Date Time Temp Pulse Resp B/P Pulse Ox O2 Delivery O2 Flow Rate FiO2 01/09/17 07:52 98.1 91 15 98/57 95 01/07/17 08:00 Room Air Intake and Output 01/08/17 01/08/17 01/09/17 15:00 23:00 07:00 Intake Total 50 ml 1480 ml Balance 50 ml 1480 ml Exam Constitutional: alert, oriented, well developed Psych: nl mood/affect, no complaints Head: atraumatic, normocephalic Eyes: EOMI, nl conjunctiva, nl lids ENMT: nl external ears & nose, nl lips & teeth, nl nasal mucosa & septum Neck: non-tender, supple Respiratory: clear to auscultation, normal air movement Cardiovascular: nl pulses, regular rate and rhythm Gastrointestinal: nl liver, spleen, non-tender, soft Musculoskeletal: nl extremities to inspection Extremities: normal pulses Neurological: MACADAM RAKER II-XII intact, nl mental status, nl speech, other (Mild right upper and right lower extremity weakness, hyperreflexia with cross over Skin: nl turgor, rash or lesions Lymph: nl lymph nodes Results/Medications Result Diagram: 01/09/17 0456 01/09/17 0456 Results 24 hrs Laboratory Tests Test 01/09/17 04:56 White Blood Count 15.2 #H Red Blood Count 4.84 Hemoglobin 15.3 Hematocrit 44.7 Mean Corpuscular Volume 92.4 Mean Corpuscular Hemoglobin 31.6 Mean Corpuscular Hemoglobin Concent 34.2 Red Cell Distribution Width 11.6 Platelet Count 195 Mean Platelet Volume 10.4 Neutrophils % 84.9 H Lymphocytes % 9.1 L Monocytes % 5.1 Eosinophils % 0.0 Basophils % 0.1 Nucleated Red Blood Cells % 0.0 Neutrophils # 12.9 H Lymphocytes # 1.4 Monocytes # 0.8 Eosinophils # 0.0 Basophils # 0.0 Nucleated Red Blood Cells # 0.0 Sodium Level 140 Potassium Level 4.3 Chloride Level 106 Carbon Dioxide Level 26 Anion Gap 12 Blood Urea Nitrogen 16 Creatinine 0.85 Glucose Level 122 Calcium Level 9.4 Phosphorus Level 4.6 Magnesium Level 1.8 Medications Current Medications Ondansetron HCl (Zofran Inj) 4 mg Q6H PRN IV NAUSEA AND/OR VOMITING; Start at 23:00 Acetaminophen (Tylenol Tab) 650 mg Q6H PRN PO PAIN LEVEL 1-3 OR FEVER; Start at 23:00 Docusate Sodium (Colace) 100 mg Q12H PRN PO CONSTIPATION; Start 01/06/17 at 23: 00 Bisacodyl (Dulcolax) 5 mg DAILY PRN PO CONSTIPATION; Start 01/06/17 at 23:00 Famotidine (Pepcid) 20 mg Q12 PO Last administered on 01/09/17 08:47; Admin Dose 20 MG; Start 01/07/17 at 09:00 Morphine Sulfate (morphine) 2 mg Q4H PRN IV PAIN Last administered on 16:05; Admin Dose 2 MG; Start 01/06/17 at 23:30 Trazodone HCl (Desyrel) 100 mg HS PO Last administered on 01/08/17 21:07; Admin Dose 100 MG; Start 01/07/17 at 21:00 Olanzapine (Zyprexa) 40 mg QHS PO Last administered on 01/08/17 21:06; Admin Dose 40 MG; Start 01/07/17 at 21:00 Gabapentin (Neurontin) 800 mg DAILY PO Last administered on 01/09/17 08:46; Admin Dose 800 MG; Start 01/07/17 at 09:00 Sulindac (Clinoril) 150 mg DAILY PO Last administered on 01/09/17 08:46; Admin Dose 150 MG; Start 01/07/17 at 09:00 Acetaminophen/ Hydrocodone Bitart ([place] (5/325)) 1 tab TID PO Last administered on 01/09/17 08:46; Admin Dose 1 TAB; Start 01/07/17 at 09:00 Sumatriptan Succinate (Imitrex) 25 mg Q4H PRN PO HEADACHE; Start 01/07/17 at 10 :30 Baclofen 10 mg 10 mg TID PO Last administered on 01/09/17 08:45; Admin Dose 10 MG; Start 01/07/17 at 13:00 Methylprednisolone Sodium Succinate/ Dextrose (Solu-Medrol/D5W) 50 ml @ 100 mls /hr DAILY IVPB Last administered on 01/09/17 08:52; Admin Dose 100 MLS/HR; Start 01/08/17 at 09:00; Stop 01/10/17 at 09:29 Guaifenesin/ Dextromethorphan (Robitussin Dm Liquid Cup) 5 ml Q6 PRN PO FOR COUGHING Last administered on 01/08/17 12:32; Admin Dose 5 ML; Start 01/08/17 at 02:30 Assessment/Plan Chief Complaint/Hosp Course 26-year-old male who had history of right arm weakness with pain for about 5 years duration. His also has history of lower back pain and was told to him [place] that he likely had sciatica. He initially presented to [facility] and was evaluated and was transferred to [facility] for further management. Also had history of schizophrenia and depression and has seen a pain specialist in the back for his lower back pain problem. He was reporting weakness in right arm and pain worsening in the last face. MRI of the cervical spine showed at C3-4 approximately 445 mm central cord lesion, see 4 5 symmetrically 5-6 mm cord lesion otherwise unremarkable. MRI Brain shows numerous white matter periventricular lesions. Mild amount of periventricular white matter signal changes. Given lesions identified in the cervical and thoracic spine (see separate dictated report), imaging findings are suggestive of a demyelinating process such as multiple sclerosis. No enhancement identified to suggest active inflammation. Recommendations: likely MS LP studies ordered IgG index also added Aquaporin-4 Ab for NMO bladder scan continue Solumedrol 3 days PT/OT Problems: FAWN RAE MD Jan 09, 2017 11:46
[2017-01-09] MEDS: morphine 2 MG INJ IV PRN ×2 (12:51→16:57)
[2017-01-09 14:00] VITALS: BP 112/63; RESP 15
[2017-01-09 14:52] LABS: ANA SCREEN NEGATIVE (NEGATIVE)
--- NOTE | 2017-01-09 15:46 | RADRPT ---
PROCEDURE: Fluoroscopic guided lumbar puncture CLINICAL INDICATION: Weakness. Concern for multiple sclerosis. TECHNIQUE: Prior to the procedure, informed consent was obtained. Risks including bleeding and in fection were explained to the patient. The patient understood and was willing to proceed. A proced ural pause was performed. The patient's name, date of , and procedure to be performed were iglesia ified. Using local anesthetic, sterile technique, and fluoroscopic guidance, a 22-gauge spinal needle was a dvanced into the thecal sac at the L4-5 level. 8 mL of clear cerebrospinal fluid was aspirated and sent for laboratory analysis. The needle was removed. A dressing was applied. The patient tolerat ed the procedure well. A total of 0.1 minute of fluoroscopy time was used. A total of 2 images are provided for interpretation. COMPARISON: None. FINDINGS: Images demonstrate the needle at the L4-5 level in the thecal sac. IMPRESSION: 1. Successful fluoroscopic guided lumbar puncture. RPTAT: QQ .Andrez Rivera MD, MD Date Time Electronically viewed and signed by .Andrez Rivera MD, on 01/09/2017 15:45 .N/
--- NOTE | 2017-01-09 15:51 | PN ---
Date/Time of Note Date/Time of Note DATE: 01/09/17 TIME: 15:50 Assessment/Plan VTE Prophylaxis VTE Prophylaxis Intervention: ambulation Lines/Catheters IV [facility] (from [facility] Saline Lock Assessment/Plan Chief Complaint/Hosp Course 1. right arm weakness, possibly MS - Patient states has family member who has MS and concerned may be reason for his symptoms - Neurology on board and recommendations appreciated. believes patient may have MS and will need LP most likely for confirmation, done today. - MRI of the cervical spine showed at C3-4 approximately 445 mm central cord lesion, see 4 5 symmetrically 5-6 mm cord lesion otherwise unremarkable. - MRI brain shows Mild amount of periventricular white matter signal changes. Given lesions identified in the cervical and thoracic spine (see separate dictated report), imaging findings are suggestive of a demyelinating process such as multiple sclerosis. No enhancement identified to suggest active inflammation. - Will continue IV methylprednisolone x3 doses total and await further recommendations from neurology 2. Viral symptoms - supportive care 3. Schizophrenia - Continue Zyprexa and Trazodone - currently stable 4. lumbar disc disease - Gabapentin 5. depression - stable 6. Asthma - Stable R distal femur osteochondroma -appeared 11 years ago, no pain or symptoms. recommend outpatient ortho follow up with yearly xray. Problems: Subjective 24 Hr Interval Summary Free Text/Dictation patient feels even better than yesterday. no acute complaints Exam/Review of Systems Vital Signs Vitals Vital Signs Date Time Temp Pulse Resp B/P Pulse Ox O2 Delivery O2 Flow Rate FiO2 01/09/17 14:00 98.1 91 15 112/63 95 01/07/17 08:00 Room Air Intake and Output 01/08/17 01/08/17 01/09/17 15:00 23:00 07:00 Intake Total 50 ml 1480 ml Balance 50 ml 1480 ml Exam General: NAD, resting comfortably CVS: regular rate and rhythm. no murmurs Lungs: CTA b/l. no wheezes or rhonchi Abd: soft NT, ND + BS, no rebound or guarding Ext: moving all extremities. no cyanosis, edema, or clubbing Neuro: CN 2-12 intact. 4/5 weakness RUE and RLE. 5/5 LUE and LLE. no focal deficits Psych: a and o x 3 Results Result Diagram: 01/09/17 0456 01/09/176 Results 24 hrs Laboratory Tests Test 01/09/17 04:55 01/09/17 04:56 Vitamin B12 Level 588 Vitamin D 1,25-Dihydroxy 37.0 White Blood Count 15.2 #H Red Blood Count 4.84 Hemoglobin 15.3 Hematocrit 44.7 Mean Corpuscular Volume 92.4 Mean Corpuscular Hemoglobin 31.6 Mean Corpuscular Hemoglobin Concent 34.2 Red Cell Distribution Width 11.6 Platelet Count 195 Mean Platelet Volume 10.4 Neutrophils % 84.9 H Lymphocytes % 9.1 L Monocytes % 5.1 Eosinophils % 0.0 Basophils % 0.1 Nucleated Red Blood Cells % 0.0 Neutrophils # 12.9 H Lymphocytes # 1.4 Monocytes # 0.8 Eosinophils # 0.0 Basophils # 0.0 Nucleated Red Blood Cells # 0.0 Sodium Level 140 Potassium Level 4.3 Chloride Level 106 Carbon Dioxide Level 26 Anion Gap 12 Blood Urea Nitrogen 16 Creatinine 0.85 Glucose Level 122 Calcium Level 9.4 Phosphorus Level 4.6 Magnesium Level 1.8 Medications Medications Current Medications Ondansetron HCl (Zofran Inj) 4 mg Q6H PRN IV NAUSEA AND/OR VOMITING; Start at 23:00 Acetaminophen (Tylenol Tab) 650 mg Q6H PRN PO PAIN LEVEL 1-3 OR FEVER; Start at 23:00 Docusate Sodium (Colace) 100 mg Q12H PRN PO CONSTIPATION; Start 01/06/17 at 23: 00 Bisacodyl (Dulcolax) 5 mg DAILY PRN PO CONSTIPATION; Start 01/06/17 at 23:00 Famotidine (Pepcid) 20 mg Q12 PO Last administered on 01/09/17 08:47; Admin Dose 20 MG; Start 01/07/17 at 09:00 Morphine Sulfate (morphine) 2 mg Q4H PRN IV PAIN Last administered on 12:51; Admin Dose 2 MG; Start 01/06/17 at 23:30 Trazodone HCl (Desyrel) 100 mg HS PO Last administered on 01/08/17 21:07; Admin Dose 100 MG; Start 01/07/17 at 21:00 Olanzapine (Zyprexa) 40 mg QHS PO Last administered on 01/08/17 21:06; Admin Dose 40 MG; Start 01/07/17 at 21:00 Gabapentin (Neurontin) 800 mg DAILY PO Last administered on 01/09/17 08:46; Admin Dose 800 MG; Start 01/07/17 at 09:00 Sulindac (Clinoril) 150 mg DAILY PO Last administered on 01/09/17 08:46; Admin Dose 150 MG; Start 01/07/17 at 09:00 Acetaminophen/ Hydrocodone Bitart ([place] (5/325)) 1 tab TID PO Last administered on 01/09/17 14:02; Admin Dose 1 TAB; Start 01/07/17 at 09:00 Sumatriptan Succinate (Imitrex) 25 mg Q4H PRN PO HEADACHE; Start 01/07/17 at 10 :30 Baclofen 10 mg 10 mg TID PO Last administered on 01/09/17 14:03; Admin Dose 10 MG; Start 01/07/17 at 13:00 Methylprednisolone Sodium Succinate/ Dextrose (Solu-Medrol/D5W) 50 ml @ 100 mls /hr DAILY IVPB Last administered on 01/09/17 08:52; Admin Dose 100 MLS/HR; Start 01/08/17 at 09:00; Stop 01/10/17 at 09:29 Guaifenesin/ Dextromethorphan (Robitussin Dm Liquid Cup) 5 ml Q6 PRN PO FOR COUGHING Last administered on 01/08/17 12:32; Admin Dose 5 ML; Start 01/08/17 at 02:30 Nicotine (Nicoderm 21 Mg/ 24hr) 1 patch DAILY TRANSDERM ; Start 01/09/17 at 14: 30 GUANAKITO HUTTON Jan 09, 2017 15:51
[2017-01-09] MEDS: NICOTINE (21 MG/24 HR) PATCH TRANSDERM SCH (15:59)
[2017-01-09 17:02] LABS: CSF COLOR COLORLESS; CSF VOLUME 6.5 ml; CSF#TUBE COUNT TUBE#4; CSF#TUBES REC'D 4
[2017-01-09 17:06] LABS: GLUCOSE,CSF 84 mg/dl (50-80)
[2017-01-09 20:00] VITALS: BP 115/59; RESP 20
[2017-01-09] MEDS: OLANZAPINE 5 MG TAB PO SCH (20:22)
[2017-01-09] MEDS: traZODone 100 MG TAB PO SCH (20:22)
[2017-01-10 07:55] VITALS: BP 98/53; RESP 18
[2017-01-10] MEDS: NICOTINE (21 MG/24 HR) PATCH TRANSDERM SCH (08:50)
[2017-01-10] MEDS: METHYLPRED. NA SUCC 1,000 MG in DEXTROSE 5% 50 ML IVPB SCH (08:50)
[2017-01-10] MEDS: GABAPENTIN 400 MG CAP PO SCH (08:51)
[2017-01-10] MEDS: BACLOFEN 10 MG TAB PO SCH ×2 (08:52→14:57)
[2017-01-10] MEDS: FAMOTIDINE 20 MG TAB PO SCH (08:53)
[2017-01-10] MEDS: HYDROCODONE/APAP (5/325) TAB PO SCH ×2 (08:55→14:57)
[2017-01-10] MEDS: SULINDAC 150 MG TAB PO SCH (08:58)
[2017-01-10 10:36] LABS: BASOPHILS % 0.1 % (0.0-2.0); HEMATOCRIT 45.4 % (42.0-52.0); HEMOGLOBIN 15.3 g/dl (14.0-18.0); LYMPHOCYTES # 2.3 10^3/ul (0.8-2.9); LYMPHOCYTES % 15.4 % (15.0-51.0); MEAN CORPUSCULAR HEMOGLOBIN 31.7 pg (29.0-33.0); MEAN CORPUSCULAR HGB CONC 33.7 g/dl (32.0-37.0); MEAN PLATELET VOLUME 10.7 fl (7.4-10.4); MONOCYTE # 0.9 10^3/ul (0.3-0.9); MONOCYTES % 5.9 % (0.0-11.0); NEUTROPHIL # 11.8 10^3/ul (1.6-7.5); PLATELET COUNT 196 10^3/UL (140-415); RED BLOOD COUNT 4.83 10^6/ul (4.70-6.10); RED CELL DISTRIBUTION WIDTH 11.9 % (11.5-14.5); WHITE BLOOD COUNT 15.1 10^3/ul (4.8-10.8)
--- NOTE | 2017-01-10 10:36 | CONS ---
Date/Time of Note Date/Time of Note DATE: 01/10/17 TIME: 10:34 Consult Date/Type/Reason Admit Date/Time Jan 06, 2017 at 22:27 Initial Consult Date 01/07/17 Type of Consultation: Neurology Reason for Consultation evaluation for weakness Multiple Sclerosis Ordering Provider: PATRICE CAMPBELL Subjective improved symptoms received LP yesterday tolerated well Objective Vital Signs Date Time Temp Pulse Resp B/P Pulse Ox O2 Delivery O2 Flow Rate FiO2 01/10/17 07:55 97.8 69 18 98/53 97 01/07/17 08:00 Room Air Intake and Output 01/09/17 01/09/17 01/10/17 15:00 23:00 07:00 Intake Total 50 ml 1920 ml Balance 50 ml 1920 ml Exam Constitutional: alert, oriented, well developed Psych: nl mood/affect, no complaints Head: atraumatic, normocephalic Eyes: EOMI, nl conjunctiva, nl lids ENMT: nl external ears & nose, nl lips & teeth, nl nasal mucosa & septum Neck: non-tender, supple Respiratory: clear to auscultation, normal air movement Cardiovascular: nl pulses, regular rate and rhythm Gastrointestinal: nl liver, spleen, non-tender, soft Musculoskeletal: nl extremities to inspection Extremities: normal pulses Neurological: DRY CLEANER HAND II-XII intact, nl mental status, nl speech, other (Mild right upper and right lower extremity weakness, hyperreflexia with cross over Skin: nl turgor, rash or lesions Lymph: nl lymph nodes Results/Medications Result Diagram: 01/09/17 0456 01/09/17 0456 Results 24 hrs Laboratory Tests Test 01/09/17 14:51 01/10/17 10:05 CSF Tubes Submitted 4 CSF Volume 6.5 CSF Appearance CLEAR CSF Color COLORLESS CSF WBC 2 CSF RBC 0 CSF Cell Count Tube # TUBE#4 CSF Mononuclear Cells % (Auto) 100.0 CSF Polynuclear WBCs (%) 0.0 CSF Glucose 84 H CSF Total Protein 53 White Blood Count Pending Red Blood Count Pending Hemoglobin Pending Hematocrit Pending Mean Corpuscular Volume Pending Mean Corpuscular Hemoglobin Pending Mean Corpuscular Hemoglobin Concent Pending Red Cell Distribution Width Pending Platelet Count Pending Mean Platelet Volume Pending Medications Current Medications Ondansetron HCl (Zofran Inj) 4 mg Q6H PRN IV NAUSEA AND/OR VOMITING; Start at 23:00 Acetaminophen (Tylenol Tab) 650 mg Q6H PRN PO PAIN LEVEL 1-3 OR FEVER; Start at 23:00 Docusate Sodium (Colace) 100 mg Q12H PRN PO CONSTIPATION; Start 01/06/17 at 23: 00 Bisacodyl (Dulcolax) 5 mg DAILY PRN PO CONSTIPATION; Start 01/06/17 at 23:00 Famotidine (Pepcid) 20 mg Q12 PO Last administered on 01/10/17 08:53; Admin Dose 20 MG; Start 01/07/17 at 09:00 Morphine Sulfate (morphine) 2 mg Q4H PRN IV PAIN Last administered on 16:57; Admin Dose 2 MG; Start 01/06/17 at 23:30 Trazodone HCl (Desyrel) 100 mg HS PO Last administered on 01/09/17 20:22; Admin Dose 100 MG; Start 01/07/17 at 21:00 Olanzapine (Zyprexa) 40 mg QHS PO Last administered on 01/09/17 20:22; Admin Dose 40 MG; Start 01/07/17 at 21:00 Gabapentin (Neurontin) 800 mg DAILY PO Last administered on 01/10/17 08:51; Admin Dose 800 MG; Start 01/07/17 at 09:00 Sulindac (Clinoril) 150 mg DAILY PO Last administered on 01/10/17 08:58; Admin Dose 150 MG; Start 01/07/17 at 09:00 Acetaminophen/ Hydrocodone Bitart ([place] (5/325)) 1 tab TID PO Last administered on 01/10/17 08:55; Admin Dose 1 TAB; Start 01/07/17 at 09:00 Sumatriptan Succinate (Imitrex) 25 mg Q4H PRN PO HEADACHE; Start 01/07/17 at 10 :30 Baclofen (Lioresal) 10 mg TID PO Last administered on 01/10/17 08:52; Admin Dose 10 MG; Start 01/07/17 at 13:00 Guaifenesin/ Dextromethorphan (Robitussin Dm Liquid Cup) 5 ml Q6 PRN PO FOR COUGHING Last administered on 01/08/17 12:32; Admin Dose 5 ML; Start 01/08/17 at 02:30 Nicotine (Nicoderm 21 Mg/ 24hr) 1 patch DAILY TRANSDERM Last administered on 08:50; Admin Dose 1 PATCH; Start 01/09/17 at 14:30 Assessment/Plan Chief Complaint/Hosp Course 26-year-old male who had history of right arm weakness with pain for about 5 years duration. His also has history of lower back pain and was told to him in [place] that he likely had sciatica. He initially presented to [facility] and was evaluated and was transferred to [facility] for further management. Also had history of schizophrenia and depression and has seen a pain specialist in the back for his lower back pain problem. He was reporting weakness in right arm and pain worsening in the last face. MRI of the cervical spine showed at C3-4 approximately 445 mm central cord lesion, see 4 5 symmetrically 5-6 mm cord lesion otherwise unremarkable. MRI Brain shows numerous white matter periventricular lesions. Mild amount of periventricular white matter signal changes. Given lesions identified in the cervical and thoracic spine (see separate dictated report), imaging findings are suggestive of a demyelinating process such as multiple sclerosis. No enhancement identified to suggest active inflammation. Recommendations: LP studies prelim results wnl, pending IgG index and Aquaporin-4 for NMO Checked B12, Vitamin D would advise to take Vitamin D supplementation as well as Multivitamin and B12 1000 mcg daily advised patient he needs to follow up with neurology as outpatient to begin Disease Modifying Therapy for MS and follow up further labs can follow w Dr. Lazar Problems: FAWN RAE MD Jan 10, 2017 10:36
--- NOTE | 2017-01-10 13:32 | PDOCDIS ---
Discharge Instructions CONDITION Patient Condition: Good HOME CARE INSTRUCTIONS: Special Diet: regular ACTIVITY: Activity Restrictions: Slowly Increase Activity FOLLOW UP/APPOINTMENTS Follow-up Plan 1. Follow up with your primary care provider as soon as possible 2. Follow up with Dr. Lazar, neurology, or another neurologist as soon as possible for discussion of multiple scelerosis 3. Obtain MRI and lumbar puncture lab results in 1 week once final values arrive. GUANAKITO HUTTON Jan 10, 2017 13:32
[2017-01-10] MEDS ORDERED: TRAZ100T15 PO (13:35)
[2017-01-10] MEDS ORDERED: GABA300C16 PO (13:35)
[2017-01-10] MEDS ORDERED: OLAN10TA7 PO (13:35)
[2017-01-10 14:49] VITALS: BP 116/68; RESP 18
--- NOTE | 2017-01-10 16:02 | DS ---
Date/Time of Note Date/Time of Note DATE: 01/10/17 TIME: 16:02 Discharge Summary Admission/Discharge Info Admit Date/Time Jan 06, 2017 at 22:27 Discharge Date/Time Jan 10, 2017 at 15:45 Patient Condition: Fair Hx of Present Illness Chief complaint: Severe right arm pain This is a 26-year-old male who was transferred from [facility] complaining of severe right arm pain. Patient originally presented to the [facility] complaining of severe right arm pain radiating from the shoulder all the way down to the lateral aspect of the arm to the dorsal hand. He describes it as burning and sharp and it is associated with numbness to the dorsal hand and forearm and down to the second and third finger. He also had weakness in the arm. According to the transfer documentation the patient stated that he initially had this pain for about 10 years however on my examination he states that it just started 3 days ago. Patient reports that he has had back pain for quite some time as he used to lift heavy objects. He goes to pain management and receives Percocet for the pain. Patient also reports that he has a history of migraine headaches. He denies any recent falls or trauma to the right arm or to the head. Patient also notes that he is lumbar spine he has some bulging disks but he has never had any surgeries. Allergies: NKDA Medications: See [facility] Hospital Course Patient is a 26-year-old male from [place] who presented as a transfer for severe right arm pain rating from the shoulder down to the lateral aspect of the arm. Upon further evaluation, patient underwent MRI which showed evidence of multiple sclerosis and neurology was consulted. Patient underwent 3 days of high-dose steroid therapy as well as lumbar puncture. Patient's symptoms resolved significantly and patient was cleared to follow-up in the outpatient setting with neurology. Final results of lumbar puncture were not available upon discharge date, however explicit directions were given to the patient on how to receive the results as well as how he needs to proceed for his further medical care. Patient was given explicit instructions on how to follow-up with the primary care provider and to follow-up with Dr. Lazar or another neurologist as soon as possible. Patient will continue his other medication for his other issues and will follow up in the outpatient setting with primary care provider and neurology. Discharge diagnoses Right arm weakness Possible multiple sclerosis Schizophrenia, controlled Back pain Depression Asthma, stable Osteochondroma Home Meds Active Scripts Gabapentin* (Gabapentin*) 300 Mg Capsule, 300 MG PO TID, #90 CAP 2 Refills Prov:GUANAKITO HUTTON 01/10/17 Olanzapine* (Zyprexa*) 10 Mg Tablet, 20 MG PO DAILY, #30 TAB 2 Refills Prov:GUANAKITO HUTTON 01/10/17 Trazodone Hcl* (Desyrel*) 100 Mg Tab, 100 MG PO QHS for 30 Days, #30 TAB Prov:GUANAKITO HUTTON 01/10/17 Discontinued Reported Medications Hydrocodone/Acetaminophen ([place] 5-325 Tablet) 1 Each Tablet, 1 EACH PO TID, TAB 01/07/17 Olanzapine* (Zyprexa*) 20 Mg Tablet, 40 MG PO QHS, #30 TAB 01/07/17 Sulindac* (Clinoril*) 150 Mg Tab, 150 MG PO DAILY, TAB 01/07/17 Gabapentin* (Gabapentin*) 800 Mg Tablet, 800 MG PO DAILY, #90 TAB 01/07/17 Follow-up Plan 1. Follow up with your primary care provider as soon as possible 2. Follow up with Dr. Lazar, neurology, or another neurologist as soon as possible for discussion of multiple scelerosis 3. Obtain MRI and lumbar puncture lab results in 1 week once final values arrive. Primary Care Provider Kj Delatorre Time spent on discharge: > 30 minutes Pending Labs Laboratory Tests Test 01/10/17 10:05 White Blood Count 15.110^3/ul (4.8-10.8) Red Blood Count 4.8310^6/ul (4.70-6.10) Hemoglobin 15.3g/dl (14.0-18.0) Hematocrit 45.4% (42.0-52.0) Mean Corpuscular Volume 94.0fl (82.0-101.0) Mean Corpuscular Hemoglobin 31.7pg (29.0-33.0) Mean Corpuscular Hemoglobin Concent 33.7g/dl (32.0-37.0) Red Cell Distribution Width 11.9% (11.5-14.5) Platelet Count 77580^3/UL (140-415) Mean Platelet Volume 10.7fl (7.4-10.4) Neutrophils % 78.0% (39.0-77.0) Lymphocytes % 15.4% (15.0-51.0) Monocytes % 5.9% (0.0-11.0) Eosinophils % 0.0% (0.0-7.0) Basophils % 0.1% (0.0-2.0) Nucleated Red Blood Cells % 0.0/100WBC (0.0-0.0) Neutrophils # 11.810^3/ul (1.6-7.5) Lymphocytes # 2.310^3/ul (0.8-2.9) Monocytes # 0.910^3/ul (0.3-0.9) Eosinophils # 0.010^3/ul (0.0-0.5) Basophils # 0.010^3/ul (0.0-0.1) Nucleated Red Blood Cells # 0.010^3/ul (0.0-0.0) GUANAKITO HUTTON Jan 10, 2017 16:02
[2017-01-12 16:51] LABS: VDRL, CSF NON-REACTIVE
== END 2017-01-10 15:45 | disposition home or self-care (01) | DRG 60 ==
LOC: MS2 22:27
PROVIDERS: ADMIT Internal Medicine; ATTEND Internal Medicine
DX: G35 Multiple sclerosis (principal); F20.9 Schizophrenia, unspecified; F32.9 Major depressive disorder, single episode, unspecified; G95.89 Other specified diseases of spinal cord; M51.86 Other intervertebral disc disorders, lumbar region; J45.909 Unspecified asthma, uncomplicated; F17.210 Nicotine dependence, cigarettes, uncomplicated
CPT/HCPCS: 70553; 72156; 72157; 73562; 80048; 80053; 80061; 80069; 82040; 82042; 82306; 82607; 82652; 82784; 82945; 83036; 83735; 83873; 83916; 84100; 84157; 84443; 85025; 85049; 85610; 85651; 85730; 86038; 86140; 86592; 86756; 87400; 89051; 97162; 97166; J2270; J2930; J3475

== ENCOUNTER 2017-11-05 17:22 | Emergency (ER) | END 2017-11-05 20:41 | disposition home or self-care (01) ==

== ENCOUNTER 2018-09-26 16:57 | Emergency (ER) | payer OTHER ==
[~2018-09-26] VITALS: Wt 68.0 kg
[~2018-09-26 16:57] MED LIST: GABA300C16 PO; HYDR-4011 PO; OLAN10TA7 PO; TRAZ-150 PO
[2018-09-26 17:11] VITALS: BP 124/71; PULSE 97; RESP 18
[2018-09-26] MEDS ORDERED: PRED20TA PO (17:46)
--- NOTE | 2018-09-26 17:50 | ERD ---
ER Documentation Chief Complaint Chief Complaint GENERAL JOINT PAIN AND HEADACHE UNABLE TO FOCUS. NEEDS TO STARTS MS MEDS HPI 28-year-old male who has a history of multiple sclerosis complaining of generalized body aches and pain in his joints. Also has difficulty focusing. He states that he is awaiting to get referral to see neurology and should have one done by early next week. He is requesting some medication to get him through till then. ROS All systems reviewed and are negative except as per history of present illness. Medications Home Meds Active Scripts Prednisone* (Prednisone*) 20 Mg Tab, 60 MG PO DAILY for 5 Days, TAB Prov:THOMAS HARRIS PA-C 09/26/18 Hydrocodone/Acetaminophen ([place] 5-325 Tablet) 1 Each Tablet, 1 TAB PO Q6H PRN for SEVERE PAIN LEVEL 7-10, #10 TAB Prov:PAIGE CELESTE NP 11/05/17 Gabapentin* (Gabapentin*) 300 Mg Capsule, 300 MG PO TID, #90 CAP 2 Refills Prov:GUANAKITO HUTTON 01/10/17 Olanzapine* (Zyprexa*) 10 Mg Tablet, 20 MG PO DAILY, #30 TAB 2 Refills Prov:GUANAKITO HUTTON 01/10/17 Trazodone Hcl* (Desyrel*) 100 Mg Tab, 100 MG PO QHS for 30 Days, #30 TAB Prov:GUANAKITO HUTTON 01/10/17 Allergies Allergies: Coded Allergies: No Known Allergy (Unverified , 01/06/17) NO KNOWN RAD ALLERGY PMhx/Soc Medical and Surgical Hx: pt denies Surgical Hx History of Surgery: No Anesthesia Reaction: No Hx Neurological Disorder: No Hx Respiratory Disorders: No Hx Cardiac Disorders: No Hx Psychiatric Problems: Yes (SCHIZOPHRENIA) Hx Miscellaneous Medical Probl: Yes (schitzophrenia, lumbar disc dz, dep, asthma, poss MS) Hx Alcohol Use: No Hx Substance Use: No Hx Tobacco Use: No Smoking Status: Never smoker FmHx Family History: No diabetes Physical Exam Vitals Vital Signs Date Temp Pulse Resp B/P (MAP) Pulse Ox O2 O2 Flow FiO2 Time Delivery Rate 09/26/18 98.5 97 18 124/71 98 17:11 (88) Physical Exam INITIAL VITAL SIGNS: Reviewed by me GENERAL: Awake, alert and oriented x 4, well appearing, nontoxic, speaking in full sentences. No acute distress HEAD: Atraumatic NECK: Supple. No masses. Full range of motion. No meningismus. No midline tenderness. RESPIRATORY: Clear to auscultation bilaterally. Symmetric chest wall rise. No wheezing or rales. No accessory muscle use. CV: Regular rate and rhythm. No murmurs, rubs, or gallops. ABDOMEN: Soft, non-distended. Nontender. Negative [place]. Negative McBurneys point tenderness. No CVA tenderness bilaterally. No guarding. No rebound. Neuro: M/S: Alert and oriented Face: EOMI, face and pharynx with normal sensation and function Motor: Normal strength throughout Sensation: Normal sensation throughout Speech: Normal Cerebel: Normal coordination Normal gait Normal finger to nose Procedures/MDM Pt with MS. This is chronic. I have seen him multiple times at another hspital for similar complaints. He has referral for neurology pending. Rx for course of prednisone given. Patient counseled regarding my diagnostic impression and care plan. Prior to discharge all questions answered. Pt agrees with treatment plan and understands strict return precautions. Pt is instructed to follow up with primary care provider within 24-48 hours. Precautionary instructions provided including instructions to return to the ER if not improving or for any worsening or changing symptoms or concerns. Departure Diagnosis: Primary Impression: Multiple sclerosis Condition: Stable Patient Instructions: Multiple Sclerosis Additional Instructions: Call your primary care doctor TOMORROW for an appointment during the next 1-2 days.See the doctor sooner or return here if your condition worsens before your appointment time. THOMAS HARRIS PA-C Sep 26, 2018 17:50
== END 2018-09-26 17:56 | disposition home or self-care (01) ==
LOC: FTE 16:57
DX: G35 Multiple sclerosis (principal); J45.909 Unspecified asthma, uncomplicated
CPT/HCPCS: 99283